=== PATIENT | female | born 1950 | race Caucasian/White ===

== ENCOUNTER 2018-01-08 11:17 | Day surgery (SDC) | payer MEDICARE, OTHER, SELFPAY ==
[2017-11-29 12:20] VITALS: BMI 26.6
[2018-01-08 11:33] VITALS: BP 132/75; PULSE 58; RESP 18; TEMP 37; O2SAT 96
[2018-01-08 12:16] VITALS: O2SAT 97
--- NOTE | 2018-01-08 12:27 | HMH.PROC ---
[facility] Procedure Note Procedure Note:: Upper Endoscopy Procedure Report: Esophagogastroduodenoscopy with cold biopsies Endoscopost: Osmel Todd II, MD Referring Physician: None Date of Procedure: January 08, 2018 Equipment: Olympus GIF 180 standard upper endoscope Sedation: MAC sedation Indications: Mrs. Bird is a 67-year-old female with dyspepsia. She has had epigastric abdominal discomfort, bloating, early satiety and occasional nausea. She has some postprandial bowel urgency. The patient had a normal gastric emptying study. She also states that she had a normal upper endoscopy with Dr. Ronal Valera MD in April 2017. She had a normal colonoscopy 3 years ago. She does have reflux which is well controlled with Prilosec. She reports no dysphagia or belching. She does have some bowel irregularity. She reports both diarrhea and constipation. Procedure: Prior to the procedure, a history and physical exam was performed, and patient's medications and allergies were reviewed. The risks, benefits and alternatives of the sedation and procedure were discussed with the patient. All questions were answered and informed consent was obtained. The patient was brought to the procedure room. Patient identification and proposed procedure were verified by the physician and the nurse. The patient was placed in a left lateral decubitus position and the scope was passed under direct vision. Throughout the procedure, the patient's blood pressure, pulse, and oxygen saturations were monitored continuously. The upper GI endoscopy was accomplished without difficulty. The patient tolerated the procedure well. Findings: The scope was passed directly into the upper esophagus and advanced to the third portion of the duodenum. The post bulbar duodenum and duodenal bulb were normal with normal mucosa and conniventes. Cold biopsies were taken from the post bulbar duodenum to rule out celiac disease. The scope was withdrawn through a normal duodenal bulb and pylorus into the stomach. There was bile reflux with linear reactive gastritis and some pylorospasm. The remainder of the antrum, body and fundus of the stomach were grossly normal. Upon retroflexion there was a small 2 cm sliding hiatal hernia. 2 biopsies were taken in the antrum and along the lesser curvature for histology to rule out gastritis and/or H pylori. The scope was then withdrawn into the esophagus. There was no evidence of reflux esophagitis or Momin's. Just below the GE junction was a polypoid lesion that was removed via cold biopsy. The remainder of the esophageal mucosa was normal. Impression: 1. Nonerosive GERD with small sliding hernia (2 cm) 2. Bile reflux with linear reactive gastritis and pylorospasm Plan: We will discuss additional treatment options for her dyspepsia. We will discuss dietary measures as well. I will follow up the biopsies. I would still consider repeating diagnostic colonoscopy based upon her symptoms. I would also like to determine whether she has had any recent imaging studies.
[2018-01-08 12:32] VITALS: BP 112/73; PULSE 60; RESP 18; TEMP 36.7; O2SAT 94
[2018-01-08 12:42] VITALS: BP 128/76; PULSE 58; RESP 20; O2SAT 97
[2018-01-08 12:52] VITALS: BP 125/69; PULSE 64; RESP 20; O2SAT 97
[2018-01-08 13:02] VITALS: BP 135/74; PULSE 51; RESP 18; O2SAT 97
--- NOTE | 2018-01-08 14:29 | P.PN_ITS ---
[facility] Anesthesia Checklist - Patient Identification Patient Identification: Arm Band, Family, Verbal (Name & ) - Structural Data Admitted From: Home Planned Operative Procedure/s: egd Consent for Planned Operative Procedure(s) Verified: Yes Verified Documents: Surgical Consent - NPO Status Verified Time NPO: 00:00 - Additional verifications Patient : No Anesthesia Reactions: No Hx Blood Transfusions: No Blood Transfusion Reaction: No Cephalosporin Allergy: No Previous Colonoscopy: No - Cardiovascular Assessment Heart Sounds: S1 & S2 Pulse Strength: Baseline Pulse Rhythm: Regular - Airway Assessment C-Spine Mobility Assessed: Yes TMJ Mobility Assessed: Yes Dentition: Good Dentition - Neurological Assessment Level of Consciousness: Awake, Alert, Appropriate Hx Seizures: No Numbness or tingling in extremities: No - Anesthesia Plan Anesthesia Risk discussed: Yes Anesthesia Plan: Verified ASA Class: II Anesthesia Type: MAC [facility] Anesthesia HX I have reviewed the patient's past medical history: Yes Medical History: Reports:: Gastroesophageal Reflux Disease(GERD) Denies:: Diabetes Mellitus Type 1, Diabetes Mellitus Type 2, Internal Pacemaker, Lung Disease, Seizures Other Surgeries: Yes: Hysterectomy-Total, Thyroidectomy. No: Pacemaker *Family Hx:: Unable to obtain
== END 2018-01-08 13:02 | disposition home or self-care (01) ==
LOC: OUTP 11:21
PROVIDERS: PCP Internal Medicine; Visit Provider Internal Medicine Gastroenterology
PROC: 0DJ08ZZ Inspection of Upper Intestinal Tract, Via Natural or Artificial Opening Endoscopic (ICD-10-PCS; CPT 43235; principal; 2018-01-08 12:30)
DX: K21.9 Gastro-esophageal reflux disease without esophagitis (principal); K44.9 Diaphragmatic hernia without obstruction or gangrene; K29.60 Other gastritis without bleeding; K31.3 Pylorospasm, not elsewhere classified
CPT/HCPCS: 43239; 88305

== ENCOUNTER → 2018-02-05 08:25 | Outpatient (POV) | payer MEDICARE, OTHER, SELFPAY | PROVIDERS: PCP Internal Medicine; Visit Provider Nurse Practitioner Acute Care | DX: Z00.00 Encounter for general adult medical examination without abnormal findings (principal) ==

== ENCOUNTER → 2018-05-18 12:30 | Outpatient (CLI) | payer MEDICARE, OTHER, SELFPAY ==
[2018-05-18 14:04] LABS: Anion Gap 11.1 mEq/L (5-15); Blood Urea Nitrogen 12 mg/dL (7-18); Calcium 9.2 mg/dL (8.5-10.1); Carbon Dioxide 30 mmol/L (21.0-32.0); Chloride 101 mmol/L (98-107); Creatinine,Serum 0.91 mg/dL (0.55-1.02); Estimated Glomerular Filt Rate 61 ml/min (>60); GFR (African American) 74 ML/MIN (>60); Glucose 111 mg/dL (74-106); Potassium 4.1 mmoL/L (3.5-5.1); Sodium 138 mmol/L (136-145)
== END ==
PROVIDERS: Visit Provider Internal Medicine Cardiovascular Disease
DX: R06.02 Shortness of breath (principal); I10 Essential (primary) hypertension
CPT/HCPCS: 36415; 80048; 83880

== ENCOUNTER → 2018-06-25 14:58 | Outpatient (CLI) | payer MEDICARE, OTHER, SELFPAY ==
[2018-06-25 15:16] LABS: Blood Urea Nitrogen 12 mg/dL (7-18); Creatinine,Serum 0.98 mg/dL (0.55-1.02); Estimated Glomerular Filt Rate 56 ml/min (>60); GFR (African American) 68 ML/MIN (>60)
--- NOTE | 2018-06-25 17:36 | CT_ITS ---
CT chest w con HISTORY: Pain and pressure below the xiphoid, chest pain ITS.REASON: abdominal pain ORDERING PHYSICIAN: Ronal Valera MD PATIENT AGE: 68 years COMPARISON: 05/29/2017 TECHNIQUE: Axial images obtained following the administration of 75 mL of Isovue 370 . Sagittal, and coronal reformatted images are also generated and reviewed. All CT scans at the facility use one or more dose reduction, viz: automated exposure control, ma/kV adjustment per patient size (including targeted exams where dose is matched to indication, i.e. head), or iterative reconstruction technique. FINDINGS: No mediastinal or hilar mass or adenopathy. No evidence of aortic aneurysm or dissection. Normal heart size. No evidence of pericardial effusion. There are centrilobular emphysematous changes 4 mm noncalcified nodule right lung base laterally unchanged. There is chronic volume loss in the lower lobes with chronic atelectatic/fibrotic changes with mild bronchiectatic changes. No central obstructing lesions evident. 3 mm nodules present in the left upper lobe medially consistent with a calcified granuloma. There is a small pneumatocele in the right lung base medially unchanged. No new areas of consolidation are evident. No effusions. No suspicious pulmonary nodules No acute bony anomalies IMPRESSION: 1. Overall stable CT appearance of the chest compared to 05/29/2017. 2. Bibasilar volume loss/scarring with mild bibasilar bronchiectasis unchanged
--- NOTE | 2018-06-25 17:36 | CT_ITS ---
CT abdomen pelvis w con CLINICAL INDICATION: Abdominal pain, epigastric pain ITS.REASON: abdominal pain ORDERING PHYSICIAN: Ronal Valera MD PATIENT AGE: 68 years COMPARISON: 01/20/2016 TECHNIQUE: Axial images obtained with sagittal and coronal reformats. All CT scans at the facility use one or more dose reduction, viz: automated exposure control, ma/kV adjustment per patient size (including targeted exams where dose is matched to indication, i.e. head), or iterative reconstruction technique. PROCEDURE: Oral Contrast: Redicat IV Contrast: 75 mL of Isovue-370. FINDINGS: There has been a prior cholecystectomy. There is mild ectasia of both intra and extrahepatic biliary tree similar to the previous exam. No focal liver lesion. The spleen, adrenal glands, and pancreas have an unremarkable appearance. No intestinal obstruction or free air. No abdominal or pelvic mass or adenopathy. No focal inflammatory change. There is given history of appendectomy and there has been a prior hysterectomy. No evidence of SMA or celiac stenosis proximally. The KVNG is patent. No acute bony anomalies. IMPRESSION: No acute abdominal or pelvic findings. Prior cholecystectomy with biliary dilatation as before
== END ==
PROVIDERS: PCP Internal Medicine; Visit Provider Surgery
DX: R10.9 Unspecified abdominal pain (principal)
CPT/HCPCS: 36415; 71260; 74177; 82565; 84520; Q9967

== ENCOUNTER → 2018-06-29 10:18 | Outpatient (CLI) | payer MEDICARE, OTHER, SELFPAY ==
[2018-06-29 10:41] LABS: Basophils % 0.7 % (0.1-2.0); Eosinophils # 0.2 K/mm3 (0.0-0.4); Hematocrit 41.6 % (37.0-47.0); Hemoglobin 13.8 g/dL (12.2-16.2); Lymphocytes # 1.7 K/mm3 (0.7-4.5); Lymphocytes % 25.8 K/mm3 (10-50); Mean Corpuscular HGB Conc 33.2 g/dL (31.8-35.4); Mean Corpuscular Hemoglobin 31.3 pg (27.0-31.2); Mean Corpuscular Volume 94.2 fl (81-99); Mean Platelet Volume 6.9 fl (7.4-10.4); Monocytes # 0.4 K/mm3 (0.1-1.0); Monocytes % 6.2 % (1.7-9.3); Neutrophils # 4.2 K/mm3 (1.8-7.8); Neutrophils % 64.4 % (37.0-80.0); Platelet Count 288 K/mm3 (142-424); Red Blood Count 4.41 M/mm3 (4.20-5.40); Red Cell Distribution Width 12.9 % (11.5-17.5); White Blood Count 6.5 K/mm3 (4.8-10.8)
[2018-06-29 11:22] LABS: Alanine Aminotransferase 18 U/L (12-78); Albumin/Globulin Ratio 1.1 (1.1-1.8); Alkaline Phosphatase 103 U/L (46-116); Aspartate Amino Transferase 10 U/L (15-37); Bilirubin,Total 0.3 mg/dL (0.2-1.0); Blood Urea Nitrogen 8 mg/dL (7-18); Calcium 9.3 mg/dL (8.5-10.1); Carbon Dioxide 32 mmol/L (21.0-32.0); Chloride 104 mmol/L (98-107); Creatinine,Serum 1.02 mg/dL (0.55-1.02); Estimated Glomerular Filt Rate 54 ml/min (>60); GFR (African American) 65 ML/MIN (>60); Globulin 3.5 gm/dl (1.3-3.2); Glucose 108 mg/dL (74-106); Sodium 141 mmol/L (136-145); Total Protein,Serum 7.5 gm/dL (6.4-8.2)
== END ==
PROVIDERS: PCP Internal Medicine; Visit Provider Surgery
DX: R10.9 Unspecified abdominal pain (principal)
CPT/HCPCS: 36415; 80053; 85025

== ENCOUNTER → 2018-07-27 10:40 | Outpatient (CLI) | payer MEDICARE, OTHER, SELFPAY ==
--- NOTE | 2018-07-27 10:43 | MM_ITS ---
MM Dig screening mamm BI w/CAD CAD Screening COMPARISON: Digital mammograms with CAD 07/06/2017 and 06/08/2015 INDICATION: There is no personal or family history of breast cancer. There is been previous biopsy right breast for benign disease. TECHNIQUE: Standard CC and MLO images were obtained. R2 CAD reviewed. FINDINGS: Scattered fibroglandular densities are seen throughout both breasts on a background of fatty breast parenchyma. The findings are bilateral and symmetrical. There is no suspicious lesion and there are no suspicious microcalcifications. Again is a large fatty replaced node right axilla. IMPRESSION: Fibrofatty parenchyma no suspicious lesion seen BI-RADS Category: 1 Negative RECOMMENDED FOLLOW-UP: 1YR - 1 YEAR FOLLOW-UP (A letter has been sent to the patient regarding results of the study.)
== END ==
PROVIDERS: PCP Internal Medicine; Visit Provider Internal Medicine
DX: Z12.31 Encounter for screening mammogram for malignant neoplasm of breast (principal)
CPT/HCPCS: 77067

== ENCOUNTER → 2018-07-31 10:57 | Outpatient (CLI) | payer MEDICARE, OTHER, SELFPAY ==
--- NOTE | 2018-07-31 | XR_ITS ---
XR chest 2V HISTORY: Difficulty breathing, chest pain ITS.REASON: SOA ORDERING PHYSICIAN: Will Kumari PATIENT AGE: 705/15/2018 COMPARISON: None FINDINGS: The cardiomediastinal silhouette and pulmonary vascularity are within normal limits. Linear density is present in both lower lobes consistent with fibrotic changes which were present on the previous exam. Right hemidiaphragm is slightly elevated anteriorly. No lobar consolidation or collapse.. There is a faint nodular density in the left lower lobe [address] of 06/25/2018 did not demonstrate any suspicious nodule in this area. May be due to an area of patchy infiltrate developing nodules or fibrosis. Follow-up recommended. If this persists then, CT may be needed for further evaluation. No acute bony anomalies. IMPRESSION: Chronic changes with bilateral lower lobe atelectasis. 13 mm ill-defined nodular opacity left lung base laterally and could be due to an area of patchy infiltrate or developing nodule or fibrosis.. Consider follow-up chest x-ray in 4-6 weeks to confirm stability
[2018-07-31 11:33] LABS: D-Dimer < 100 ng/mL (0-400)
== END ==
PROVIDERS: PCP Internal Medicine; Visit Provider Internal Medicine
DX: R06.02 Shortness of breath (principal)
CPT/HCPCS: 36415; 71046; 83880; 85378